=== PATIENT | male | born 1945 | race Caucasian/White ===

== ENCOUNTER 2019-05-17 09:48 | Emergency (ER) | payer OTHER, SELFPAY ==
[2019-05-17 10:00] VITALS: BP 163/98; PULSE 80; RESP 16; TEMP 36.5; O2SAT 97
--- NOTE | 2019-05-17 10:14 | ED.GENADUL_ITS ---
Discharge Plan Disposition Patient Disposition: HOME Condition: Improving Discharge Details Chief Complaint: RespSymp Clinical Impression: Acute bronchitis Primary Care Provider: None,None ED Provider: Ramesh Leone Home Meds and New Rx's Prescriptions: New azithromycin 250 mg tablet See Rx Instructions .ROUTE .COMPLEX Qty: 6 RF: 0 Continued ibuprofen 800 MG tablet 800 mg PO PRN PRNRF: 0 amlodipine 5 MG tablet 5 mg PO DAILY RF: 0 aspirin [Aspir-81] 81 MG tablet,delayed release (DR/EC) 81 mg PO DAILY RF: 0 prednisolone acetate [Omnipred] 5 ML drops,suspension 5 ml Ophthalmic DIRECTED RF: 0 brimonidine 5 ML drops 5 ml Ophthalmic BID RF: 0 benazepril 20 MG tablet 20 mg PO DAILY RF: 0 pravastatin 20 MG tablet 20 mg PO QPM RF: 0 hydrochlorothiazide 25 MG tablet 25 mg PO DAILY RF: 0 dorzolamide 10 ML drops 10 ml Ophthalmic BID RF: 0 Lumigan 5 ML drops 5 ml Ophthalmic HS RF: 0 Multivitamin/Iron/Folic Acid [Centrum Adults Tablet] 1 EACH Tablet 1 ea PO RF: 0 Discharge Instructions Instructions: Acute Bronchitis (ED) Additional Instructions: Home to rest today. Continue to push small, frequent sips of fluids to maintain hydration. Take antibiotic as prescribed. Continue your regular medications. Return to the emergency department for any acute concern. Follow-up with your regular doctor for recheck upon your return to [place] this fall. Medical Decision Making 73-year-old male presents from his home in [facility] for 2 weeks. On the plane he developed a cough with congestion, production of sputum that is been persistent. He has not had fever, no chest pain or shortness of breath. Arrives with slight hypertension but otherwise normal vital signs. His history and presentation is consistent with acute bronchitis. I will treat with a course of azithromycin. He is stable for discharge to home HPI General Mode of arrival: ambulatory . Date/Time Provider Initiated Documentation: 05/17/19 10:12 . Limitations to Documentation: no limitations . Information obtained by: patient . History of Present Illness 73 year old M presents to the emergency department with the chief complaint of Cough, congestion, described as moderate, Quality is described as dull, and is localized to the chest. Patient reports no radiation. Patient started experiencing this day(s) and it has been constant. No relieving factors improve symptom(s), No exacerbating factors reported . Patient notes no oth er symptoms.; denies chest pain and shortness of breath. Patient did receive the following treatments prior to arrival, none Related Data Home Medications Medication Instructions Recorded Confirmed Lumigan 5 ml OPHTHALMIC HS 08/05/17 05/17/19 Multivitamin/Iron/Folic Acid 1 ea PO 08/05/17 [Centrum Adults Tablet] amlodipine 5 mg PO DAILY 08/05/17 05/17/19 aspirin [Aspir-81] 81 mg PO DAILY 08/05/17 05/17/19 benazepril 20 mg PO DAILY 08/05/17 05/17/19 brimonidine 5 ml OPHTHALMIC BID 08/05/17 05/17/19 dorzolamide 10 ml OPHTHALMIC BID 08/05/17 05/17/19 hydrochlorothiazide 25 mg PO DAILY 08/05/17 05/17/19 ibuprofen 800 mg PO PRN PRN 08/05/17 05/17/19 pravastatin 20 mg PO QPM 08/05/17 05/17/19 prednisolone acetate [Omnipred] 5 ml OPHTHALMIC DIRECTED 08/05/17 05/17/19 azithromycin See Rx Instructions .ROUTE 05/17/19 .COMPLEX #6 tab Previous Rx's Medication Instructions Recorded azithromycin See Rx Instructions .ROUTE 05/17/19 .COMPLEX #6 tab Allergies Allergy/AdvReac Type Severity Reaction Status Date / Time No Known Allergies Allergy Unverified 05/17/19 10:02 General Stated Complaint: RespSymp SHIV: 3 Review of Systems Review of Systems 6 systems reviewed and otherwise no PFSH Social History Smoking/Tobacco Use Status: Former Tobacco Use Substance use type: does not use Do you feel safe in your relationship?: Yes Exam Narrative Exam Narrative: GEN: awake, alert, oriented 3. Pleasant, well groomed, interactive. HEAD: Normocephalic, atraumatic ENT: Mucous membranes moist, oropharynx unremarkable, External ear exam unremarkable EYES: PERRL, EOMI NECK: Full ROM, no ALICE, no menigismus CHEST/RESP: Nontender, clear to auscultation bilateral, no wheeze/rhonchi/rales CARDIOVASCULAR: RRR, no murmur, rub melina. 2+ Rad pulse bilateral ABDOMEN: Soft, nontender, no mass. +Bowel sounds EXT: Full ROM, no edema, no rash. Arthritic tophi left Neuro: Grossly normal neurologic exam, conversant, interactive. Psych: Speech fluent, thoughts congruent, affect normal Course Vital Signs Temperature 36.5 C 05/17/19 10:00 Pulse 80 05/17/19 10:00 Respiratory Rate 16 05/17/19 10:00 Blood Pressure 163/98 H 05/17/19 10:00 Pulse Oximetry 97 05/17/19 10:00 Temperature 36.5 C 05/17/19 10:00 Temperature Source Skin 05/17/19 10:00 Pulse 80 05/17/19 10:00 Respiratory Rate 16 05/17/19 10:00 Respiratory Effort Non-Labored 05/17/19 10:00 Blood Pressure 163/98 H 05/17/19 10:00 Blood Pressure Position Sitting 05/17/19 10:00 Pulse Oximetry 97 05/17/19 10:00 Oxygen Delivery Method Room Air 05/17/19 10:00 Oxygen Flow Rate 0 05/17/19 10:00 Pain Level 2 05/17/19 10:00
[2019-05-17 10:22] VITALS: BP 148/92; PULSE 72; RESP 16; O2SAT 97
== END 2019-05-17 10:26 | disposition home or self-care (01) ==
PROVIDERS: Emergency Provider Emergency Medicine
DX: J20.9 Acute bronchitis, unspecified (principal); Z87.891 Personal history of nicotine dependence
CPT/HCPCS: 99283